=== PATIENT | male | born 1990 | race African-American/Black ===

== ENCOUNTER 2021-08-18 15:22 | Emergency (ER) | payer MEDICAID, SELFPAY ==
[~2021-08-18] VITALS: Ht 182.9 cm; Wt 90.7 kg
[2021-08-18 19:08] VITALS: BP 139/86
== END 2021-08-18 19:10 | disposition home or self-care (01) ==
LOC: ER 15:22
DX: U07.1 COVID-19 (principal)
CPT/HCPCS: 71045; 99283